=== PATIENT | male | born 1975 | race Caucasian/White ===

== ENCOUNTER → 2016-08-02 | Outpatient (CLI) | payer OTHER ==
[~2016-08-02] MED LIST: ALBU18HF INH; ALBU6.7H INH; BECL8.7A5 INH; CETI10TA24 PO; DICY10CA53 PO; DULO60CA7 PO; LAMO200T3 PO; METH5TAB6 PO; MULT1TAB76 PO; QUET25TA5 PO; VITA1CAP5 PO
[2016-08-02 12:17] LABS: HEMOGLOBIN 14.6 g/dL (13.7-18.0)
[2016-08-02 12:31] LABS: BLOOD UREA NITROGEN 19 mg/dL (7-18)
== END | disposition home or self-care (01) ==
LOC: STAR 11:27
PROVIDERS: ATTEND Surgery
DX: Z01.818 Encounter for other preprocedural examination (principal); E04.1 Nontoxic single thyroid nodule
CPT/HCPCS: 36415; 80048; 84439; 84443; 85025

== ENCOUNTER 2016-08-10 06:19 | Observation (INO) | payer OTHER ==
[~2016-08-10] VITALS: Ht 177.8 cm; Wt 80.0 kg
[2016-08-10] MEDS ORDERED: BUPIVACAINE/PF-EPI 0.5% 1:200K ONE (06:47)
[2016-08-10] MEDS ORDERED: LACTATED RINGERS 1,000 ML IV SCH (07:08)
[2016-08-10] MEDS ORDERED: MIDAZOLAM 1 MG/ML, 2ML ONE (07:20)
[2016-08-10] MEDS ORDERED: FENTANYL PF 250 MCG/5ML ONE ×2 (07:20→09:13)
[2016-08-10] MEDS ORDERED: SUCCINYLCHOLINE 20 MG/ML, 10ML ONE (07:22)
[2016-08-10] MEDS ORDERED: ROCURONIUM 10 MG/ML ONE (07:22)
[2016-08-10] MEDS ORDERED: PHENYLEPHRINE 10 MG/ML ONE (07:22)
[2016-08-10] MEDS ORDERED: EPHEDRINE 50 MG/ML, 1ML ONE (07:22)
[2016-08-10] MEDS ORDERED: DEXAMETHASONE 4 MG/ML, 5ML ONE (07:22)
[2016-08-10] MEDS ORDERED: CEFAZOLIN 1,000 MG ONE (07:22)
[2016-08-10] MEDS ORDERED: ONDANSETRON 2MG/ML, 2ML ONE (07:22)
[2016-08-10] MEDS ORDERED: PROPOFOL 10 MG/ML, 20ML ONE (07:22)
[2016-08-10] MEDS ORDERED: HYDROmorphone 2 MG/ML, 1ML ONE (07:57)
[2016-08-10] MEDS ORDERED: hydrALAzine 20 MG/ML, 1ML IV PRN (08:00)
[2016-08-10] MEDS ORDERED: MEPERIDINE/PF 25MG/0.5ML IVPush PRN (08:00)
[2016-08-10] MEDS ORDERED: FENTANYL PF 100 MCG/2ML IV PRN (08:00)
[2016-08-10] MEDS ORDERED: HYDROmorphone 1 MG/ML, 1ML IV PRN (08:00)
[2016-08-10] MEDS ORDERED: MIDAZOLAM 1 MG/ML, 2ML IV PRN (08:00)
[2016-08-10] MEDS ORDERED: PROMETHAZINE 25 MG/ML, 1ML IV PRN (08:00)
[2016-08-10] MEDS ORDERED: METOCLOPRAMIDE 5 MG/ML, 2ML IV PRN (08:00)
[2016-08-10] MEDS ORDERED: ONDANSETRON 2MG/ML, 2ML IVPush PRN (08:00)
[2016-08-10] MEDS ORDERED: ACETAMINOPHEN 325 MG TABLET PO PRN (08:00)
[2016-08-10] MEDS ORDERED: OXYcodone 5 MG/5 ML ORAL.SOL UDC PO PRN (08:00)
[2016-08-10] MEDS ORDERED: KETAMINE 10 MG/ML, 20ML ONE (09:13)
[2016-08-10] MEDS ORDERED: THROMBIN 5,000 UNIT VIAL TP ONE (10:07)
[2016-08-10] MEDS ORDERED: RACEPINEPHRINE INH 2.25%, 0.5ML ONE (10:46)
[2016-08-10] MEDS ORDERED: RACEPINEPHRINE INH 2.25%, 0.5ML NPPB PRN (11:30)
[2016-08-10] MEDS: LABETALOL 5MG/ML, 20ML IV PRN ×3 (11:32→11:45)
[2016-08-10] MEDS ORDERED: LABETALOL 20 MG/4 ML ONE (11:54)
[2016-08-10] MEDS ORDERED: hydrALAzine 20 MG/ML, 1ML ONE (11:55)
[2016-08-10] MEDS ORDERED: ACETAMINOPHEN 325 MG TABLET ONE (12:45)
[2016-08-10] MEDS ORDERED: OXYcodone 5 MG/5 ML ORAL.SOL UDC ONE (12:46)
[2016-08-10 13:30] VITALS: BP 152/84
[2016-08-10] MEDS ORDERED: ONDANSETRON 2MG/ML, 2ML IV PRN (14:00)
[2016-08-10] MEDS ORDERED: MORPHINE SULFATE 4 MG/ML, 1ML IV PRN (14:00)
[2016-08-10] MEDS: D5%-0.45NACL+KCL 20MEQ 1,000 ML IV SCH (16:19)
[2016-08-10] MEDS: OXYcodone/APAP 5/325MG TABLET PO PRN ×4 (16:21→21:03)
[2016-08-10 18:35] VITALS: BP 138/84
[2016-08-10] MEDS ORDERED: LEVOTHYROXINE 50 MCG TABLET PO SCH (21:00)
[2016-08-11 00:20] VITALS: BP 139/83
[2016-08-11] MEDS: D5%-0.45NACL+KCL 20MEQ 1,000 ML IV SCH (00:35)
[2016-08-11] MEDS: OXYcodone/APAP 5/325MG TABLET PO PRN ×4 (00:47→12:34)
[2016-08-11 03:55] VITALS: BP 146/77
[2016-08-11 09:05] VITALS: BP 142/90
[2016-08-11] MEDS ORDERED: OXYC-302 PO (11:04)
[2016-08-11] MEDS ORDERED: LEVO50TA5 PO (11:05)
[2016-08-11] MEDS ORDERED: ONDA4TAB10 PO (11:05)
[2016-08-11] MEDS ORDERED: PNEUMOCOCCAL 23 VACCINE IM-VACC ONE (11:30)
== END 2016-08-11 13:00 | disposition home or self-care (01) ==
LOC: OUT 06:19 → 4NOR 13:37 → INTOOBSV 13:37
PROVIDERS: ADMIT Surgery; ATTEND Surgery
DX: E05.11 Thyrotoxicosis with toxic single thyroid nodule with thyrotoxic crisis or storm (principal); J45.909 Unspecified asthma, uncomplicated; F31.9 Bipolar disorder, unspecified; K58.9 Irritable bowel syndrome, unspecified; Z23 Encounter for immunization; Z98.890 Other specified postprocedural states; Z82.49 Family history of ischemic heart disease and other diseases of the circulatory system; Z80.8 Family history of malignant neoplasm of other organs or systems
CPT/HCPCS: 36415; 60220; 82330; 88307; 90471; 90732; 94640; 96374; G0378; J0330; J0360; J0690; J1100; J1170; J2250; J2370; J2405; J2704; J3010; J3480; J7120